=== PATIENT | male | born 1945 | race African-American/Black ===

== ENCOUNTER 2023-09-29 01:00 | Emergency (ER) | payer MEDICAID ==
[~2023-09-29] VITALS: Ht 162.6 cm; Wt 75.0 kg
[2023-09-29 01:05] VITALS: O2SAT 100
[2023-09-29] MEDS ORDERED: TETANUS, DIPHTHERIA, PERTUSSIS VAC/PF 0.5ML (>10YR OLD) IM ONE (01:15)
[2023-09-29] MEDS: TETANUS, DIPHTHERIA, PERTUSSIS VAC/PF 0.5ML (>10YR OLD) IM ONE (01:46)
[2023-09-29] MEDS ORDERED: LIDO1ADH23 TP (04:13)
[2023-09-29] MEDS ORDERED: TOPUD PO (04:13)
[2023-09-29] MEDS ORDERED: IBUP-2028 MT (04:13)
[2023-09-29] MEDS ORDERED: METH-653 MT (04:13)
[2023-09-29 04:24] VITALS: BP 146/77; PULSE 69; RESP 18; TEMP 98.2
== END 2023-09-29 04:27 | disposition home or self-care (01) ==
LOC: ER 01:00
DX: S01.81XA Laceration without foreign body of other part of head, initial encounter (principal); I10 Essential (primary) hypertension; V89.2XXA Person injured in unspecified motor-vehicle accident, traffic, initial encounter; Y93.89 Activity, other specified; Y92.488 Other paved roadways as the place of occurrence of the external cause; Y99.8 Other external cause status
CPT/HCPCS: 70450; 90715; 12013; 90471; 99285; Z7610 ×3